=== PATIENT | female | born 1930 | race Hispanic/Latino ===

== ENCOUNTER 2017-06-05 04:21 | Emergency (ER) | payer MEDICARE, OTHER ==
[~2017-06-05] VITALS: Ht 152.4 cm; Wt 41.0 kg
[~2017-06-05 04:21] MED LIST: AMLODIPINE5 MG PO; ASPIRIN EC LOW81 MG PO; CENTRUM SILVER ULTRA PO; CIPRO XR500 MG PO; CLARITIN10 M1 OR; COREG3.125 MG PO; CYMBALTA20 MG PO; EQ OMEPRAZOLE M20 MG PO; FLAGYL500 MG OR; GABAPENTIN100 MG PO; ISOSORB DIN10 MG PO; LIPITOR10 MG PO; LOSARTAN POT50 MG PO; LOTENSIN HCT1 TA1 PO; MEVACOR10 MG PO; MEVACOR20 M1 OR; NITROSTAT0.4 MG SL; NORCO1 TA1 PO; OMEPRAZOLE20 MG PO; PHENERGAN25 MG/TAB PO; PRILOSEC40 MG PO; PROZAC20 M1 OR; REGLAN5 MG OR; TOPROL XL25 M1 OR; XANAX0.25 MG PO; XANAX0.5 MG OR
[2017-06-05] MEDS ORDERED: NAPROSYN250 MG PO (06:07)
[2017-06-05 06:21] VITALS: BP 147/92
== END 2017-06-05 06:21 | disposition home or self-care (01) ==
LOC: ED 04:21
DX: S20.212A Contusion of left front wall of thorax, initial encounter (principal); W18.30XA Fall on same level, unspecified, initial encounter; Y93.89 Activity, other specified; Y92.009 Unspecified place in unspecified non-institutional (private) residence as the place of occurrence of the external cause